=== PATIENT | female | born 1985 | race Caucasian/White ===

== ENCOUNTER → 2018-08-22 12:56 | Outpatient (CLI) | payer OTHER, SELFPAY ==
--- NOTE | 2018-08-22 12:57 | DI.US.S_ITS ---
PROCEDURE: US OB >= 14 WEEKS FETUS INDICATIONS: ANATOMY SURVEY OUTSIDE/PRIOR DATING DATA: Last menstrual period (LMP): 04/01/18. LMP-based estimated date of delivery (LUCIAN): 01/06/19. First dating scan (date and location): 08/21/18. Estimated date of delivery (LUCIAN) from first dating scan: 01/07/19. TECHNIQUE: Real-time scanning was performed of the fetus, with image documentation and biometric measurements. Endovaginal scanning: No COMPARISON: None. FINDINGS: General: A single living intrauterine gestation is present. Presentation: Variable. Placenta: Placental position is anterior, without previa. Amniotic fluid index: 14.3 cm, normal range is 5-24 cm. heart rate: 158 beats per minute. Maternal cervical canal: 5.1 cm long. Normal lower limit is 2.5 cm. biometrics: Biparietal diameter: 19 weeks 6 days Head circumference: 19 weeks 6 days Abdominal circumference: 20 weeks 6 days Femur length: 20 weeks 3 days Estimated gestational age from initial scan: not applicable. Composite gestational age from present scan: 20 weeks 2 days Estimated weight and percentile: 364 g; 54 percentile Measurement variability for biometric dating: +/- 7 days from 14 weeks to 15 weeks 6 days gestation, +/- 10 days from 16 weeks to 21 weeks 6 days gestation, +/- 2 weeks from 22 weeks to 27 weeks 6 days gestation, +/- 3 weeks for 28 weeks gestation or later. weight reference: 4500 g or EFW >90/95% is considered macrosomia or large for gestational age. EFW <10% is small for gestational age. EFW 5% or less is considered intra-uterine growth restriction. Anatomic survey: Neuro: Ventricles are non-dilated at less than 10 mm. Cisterna magna is normal at 3-11 mm. Cerebellum is normal in size and morphology. Nuchal skin fold: Normal at less than 6 mm between 14-21 weeks gestational age. Face: Nose and lips, facial profile are normal. Spine: No evidence for spina bifida. Heart: 4-chambered heart is present, with normal ventricular outflow tracts. Diaphragm: Diaphragm is intact. Stomach: Left-sided stomach is present. Kidneys: No hydronephrosis. Normal is less than 5 mm in 2nd trimester, less than 7 mm in 3rd trimester. Cord: 3-vessel cord has orthotopic insertion. Bladder: Normal in size. Extremities: All 4 extremities identified. IMPRESSION: 1. Single living IUP with composite gestational age of 20 weeks 2 days corresponding to LUCIAN OF 01/07/19. 2. Normal anatomic survey. Dictated by: Adam Dorsey [facility] Interpreted: Lani Lara MD on 08/22/2018 at 15:41 Approved by: Lani Lara M.D. on 08/22/2018 at 16:40
== END ==
PROVIDERS: PCP Family Medicine; Visit Provider Specialist
DX: Z34.82 Encounter for supervision of other normal pregnancy, second trimester (principal); Z36.89 Encounter for other specified antenatal screening; Z3A.20 20 weeks gestation of pregnancy
CPT/HCPCS: 76811; 76817

== ENCOUNTER → 2018-10-03 11:27 | Outpatient (CLI) | payer OTHER, SELFPAY ==
[2018-10-03 13:04] LABS: Add Manual Diff / Slide Review NO; Basophils Absolute Auto 0 /uL (0-100); Basophils Percent Auto 0.4 % (0-2); Eosinophils Absolute Auto 200 /uL (0-450); Eosinophils Percent Auto 2.4 % (2-4); Hemoglobin 11.5 g/dL (12.0-16.0); Lymphocytes Absolute Auto 1300 /uL (1100-4500); Mean Corpuscular HGB Conc 33.9 % (30-36); Mean Corpuscular Volume 94.5 fL (80-100); Monocytes Absolute Auto 400 /uL (0-900); Monocytes Percent Auto 5.1 % (3-14); Neutrophils Absolute Auto 5300 /uL (1500-7000); Neutrophils Percent Auto 74.1 % (50-75); Platelet Count 198 X10^3/uL (150-400); Red Cell Distribution Width 13.5 % (11.6-14.8); White Blood Cell Count 7.1 X10^3/uL (4.5-11.0)
[2018-10-03 13:20] LABS: GTT (PREG) 1 Hour PP 50gm Dose 127 mg/dL (76-139)
[2018-10-03 14:37] LABS: Rubella Antibody IgG 47.2 IU/mL (>15)
[2018-10-03 14:45] LABS: Hepatitis B Surface Antigen NEGATIVE s/c (NEGATIVE)
[2018-10-03 14:58] LABS: HIV 1 & 2 Ab/Ag 4th Gen Combo NEGATIVE (NEGATIVE); Hep C Virus Ab w/Reflex Quant NEGATIVE s/c (NEGATIVE)
[2018-10-05 13:54] LABS: HSV 2 IGG AB < 0.90 index (< 0.90)
[2018-10-06 12:17] LABS: RPR Screen Nonreactive (Nonreactive)
[2018-10-23 13:39] LABS: Urine N gonorrhoeae NOT DETECTED
[2018-10-23 13:40] LABS: Urine Chlamydia NOT DETECTED
== END ==
PROVIDERS: PCP Family Medicine; Visit Provider Specialist
DX: Z34.82 Encounter for supervision of other normal pregnancy, second trimester (principal); Z3A.26 26 weeks gestation of pregnancy; Z67.91 Unspecified blood type, Rh negative
CPT/HCPCS: 36415; 80055; 82950; 86695; 86696; 86787; 86803; 86850; 86900; 86901; 87389; 87491; 87591

== ENCOUNTER → 2018-12-18 08:57 | Outpatient (CLI) | payer OTHER, SELFPAY ==
[2018-12-19 15:09] LABS: Strep Grp B PCR POS for Grp B Strep
== END ==
PROVIDERS: PCP Family Medicine; Visit Provider Specialist
DX: Z34.83 Encounter for supervision of other normal pregnancy, third trimester (principal)
CPT/HCPCS: 87653

== ENCOUNTER 2019-01-02 11:20 | Inpatient (IN) | payer OTHER, SELFPAY ==
--- NOTE | 2019-01-02 11:43 | PM.PREOP ---
Pre-operative Note Interval Note History & Physical reviewed/Exam performed by Physician: Yes Changes to H&P: No
--- NOTE | 2019-01-02 11:47 | PM.OBHP.1 ---
OB HPI Date/Time Date of admission: 01/02/19 Date Patient Seen: 01/02/19 Time Patient Seen: 11:47 History of Present Condition Chief complaint: [id number] : 4 Para: 2 Estimated Date of Delivery: 01/09/19 Estimated Gestational Age (weeks): 39 Narrative: Erendira Silva is a 33 year old female admitted for repeat Indications Operative indications ( section): previous uterine surgery History of Present care: good care, initiated at week # (9), number of visits (11) and pounds weight gain (42) Dating criteria: LMP confirmed by 1st trimester US Ultrasounds: normal mid trimester US Obstetrical complications: none Medical complications: none Preadmission Labs Blood type: 0 (-) negative -: Antibody screen: negative, GBS status: positive, HBsAG: negative, HIV: negative, HSV 1: positive and HSV 2: negative -: Chlamydia screen: not detected and Gonorrhea screen: not detected -: Rubella: immune and Varicella: immune HCAB: negative 1 hr GTT: 127 Prior (ies) History: 10/12/2013 male weighing 8 lb 15 oz section 02/25/2016 male repeat C-sections weighing 9 lb Evaluation Evaluation Baseline heart rate: 130 Variability: Moderate (11-25) monitor accelerations: Present monitor decelerations: Absent Contraction Frequency (minutes): 0 PFSH Social History marital status: number of children: 2 occupational status: employed Smoking Status: Never smoker alcohol intake: former substance use type: does not use Meds Home Medications and Allergies Allergies Allergy/AdvReac Type Severity Reaction Status Date / Time No Known Drug Allergies Allergy Verified 01/02/19 11:34 Review of Systems Review of Systems Narrative: No signs or symptoms of preeclampsia. No leakage of fluid. Good movement. No contractions. ROS Unobtainable: All systems reviewed & are unremarkable except as noted in HPI and below Exam Narrative Exam Narrative: HEENT exam within normal limits. Lungs are clear to auscultation percussion. Heart is regular rate and rhythm no S3-S4 or murmurs. Abdomen is gravid with vertex. Extremities with trace edema and nontender. Assessment and Plan Assessment and Plan Assessment and Plan narrative: 39 week gestation with 2 prior sections for repeat low-transverse section
[2019-01-02] MEDS: LACTATED RINGERS 1,000 ML 100 ML IV ×2 (11:50→19:41)
[2019-01-02 12:23] LABS: Add Manual Diff / Slide Review NO; Basophils Absolute Auto 0 /uL (0-100); Basophils Percent Auto 0.3 % (0-2); Eosinophils Absolute Auto 200 /uL (0-450); Eosinophils Percent Auto 1.9 % (2-4); Hematocrit 36.2 % (36-46); Hemoglobin 12.6 g/dL (12.0-16.0); Lymphocytes Absolute Auto 1600 /uL (1100-4500); Lymphocytes Percent Auto 15.6 % (25-40); Mean Corpuscular HGB Conc 34.7 % (30-36); Mean Corpuscular Hemoglobin 32.2 PG (26-34); Mean Corpuscular Volume 92.9 fL (80-100); Monocytes Absolute Auto 600 /uL (0-900); Monocytes Percent Auto 5.7 % (3-14); Neutrophils Absolute Auto 8000 /uL (1500-7000); Neutrophils Percent Auto 76.5 % (50-75); Platelet Count 197 X10^3/uL (150-400); Red Cell Distribution Width 14.3 % (11.6-14.8); White Blood Cell Count 10.4 X10^3/uL (4.5-11.0)
[2019-01-02] MEDS: CEFAZOLIN 2 GM/100 ML FROZ.PIGGY IV (13:10)
--- NOTE | 2019-01-02 13:36 | SUR.OPER ---
Supine on Padded OR bed, head on pillow, safety belt at thigh, arms secured on padded arm boards at <90 degrees abduction. Bump under right buttock. Legs uncrossed with pillow under knees, gel pad to heels, tape over blanket to lower legs.
[2019-01-02] MEDS: LACTATED RINGERS 1,000 ML 42 ML IV (13:49)
--- NOTE | 2019-01-02 13:50 | SUR.OPER ---
FHR 140 TOB 13:37 alive boy. Cord blood x 2 and placenta given to OB nurse.
[2019-01-02 14:22] VITALS: BP 98/58; PULSE 69; RESP 10; TEMP 36.3; O2SAT 100
[2019-01-02 14:25] VITALS: BP 105/49; PULSE 60; RESP 14; O2SAT 100
[2019-01-02 14:30] VITALS: BP 112/58; PULSE 68; RESP 12; O2SAT 100
--- NOTE | 2019-01-02 14:32 | PM.OP.1 ---
Operative Date/Time/Diagnoses Date of procedure: 01/02/19 Time of procedure: 14:32 Pre-op diagnosis: 39 week gestation with 2 prior section Post-op diagnosis: same Procedure & Clinicians Procedure: Repeat low-transverse section Same procedure as scheduled: Yes Indications: 39 weeks with prior section Surgeon: Alissa Sanon [facility] President: Berenice Louise Click Yes if Unassisted: No Anesthesia Type: Spinal Operative Notes Findings: Normal tubes ovaries and uterus with adhesion of the anterior abdominal wall to the anterior uterus that was lysed. Viable male infant weighing 8 lb 5 oz with Apgars of 8 9 Closure Type: primary Specimen(s): none sent Applied: catheter (Edmond) Estimated Blood Loss (mL): 400 Blood products transfused: none Procedure in detail: The patient was brought to the operating room where she underwent a spinal for anesthesia. She was placed in a supine position with a left lateral tilt. A Edmond catheter was placed. Pulsatile stockings were placed and functional throughout the case. 2 g of Ancef were given IV prior to the incision. Warming was in place. The patient was prepped and draped in usual sterile fashion. A low transverse incision was made with a scalpel and the incision was carried down to the fascial layer which was incised transversely with scissors. The midline attachments are superiorly and inferiorly. Some bleeding was controlled Bovie. The rectus muscles were in the midline and the peritoneal incision was made with no damage to internal structures. The peritoneum was incised and superiorly and inferiorly. An adhesion of the anterior abdominal wall to the anterior uterus was lysed with the Bovie. Bladder blade was placed and a bladder flap was developed and the bladder held away from the lower uterine segment. An incision was made in the uterus with the scalpel and the incision was extended with stretching. The head was elevated out of the abdomen with the assistance of the vacuum and with fundal pressure the baby was delivered. The was bulb suctioned for clear fluid and handed off to the warmer. Cord blood was collected. The placenta delivered spontaneously with traction. The uterus was cleaned with clean laps. The uterine incision was closed in 2 layers of 0 chromic suture the first a running locking layer the second an imbricating layer. The bladder peritoneum was repaired with 2-0 Polysorb suture. The gutters were cleaned of any remaining fluids and ovaries and tubes were observed to be normal. Adequate hemostasis was noted. The perineum was closed with 2-0 Polysorb suture. The fascia layer was closed with 0 Polysorb suture with 2 stitches. The incision was irrigated and adequate hemostasis noted. The incision was closed with interrupted 3-0 Polysorb sutures and then a subcuticular stitch of 4-0 Polysorb suture. Steri-Strips were placed. The uterus was massaged to remove any clots. The patient went to recovery room in good condition. Counts of instruments and sponges were correct. Complications: none Post-operative Condition: stable Disposition: other ( Center) Plan for aftercare: Routine post section
[2019-01-02 14:36] VITALS: BP 100/50; PULSE 60; RESP 14; O2SAT 100
--- NOTE | 2019-01-02 14:40 | SUR.PHASEI ---
Report called to Haydee
[2019-01-02 14:44] VITALS: BP 97/55; PULSE 57; RESP 9; O2SAT 100
--- NOTE | 2019-01-02 15:05 | SUR.PHASEI ---
Pt transferred to the center. Report to Haydee. VS stable. Scant shadow drainage to abd dressing, unchanged. Small to mod amt of vaginal bleeding with fundal massage by Haydee. LR with Pitocin infusing to LT hand. Edmond patent.
[2019-01-02] MEDS: KETOROLAC 30 MG/ML VIAL IV (19:42)
[2019-01-03] MEDS: KETOROLAC 30 MG/ML VIAL IV ×2 (01:35→08:03)
[2019-01-03 05:42] VITALS: BP 116/68; PULSE 70; RESP 16; TEMP 37.1
[2019-01-03 06:16] LABS: Add Manual Diff / Slide Review NO; Basophils Absolute Auto 0 /uL (0-100); Basophils Percent Auto 0.3 % (0-2); Eosinophils Absolute Auto 100 /uL (0-450); Eosinophils Percent Auto 1.3 % (2-4); Hematocrit 28.4 % (36-46); Hemoglobin 10.1 g/dL (12.0-16.0); Lymphocytes Absolute Auto 1300 /uL (1100-4500); Lymphocytes Percent Auto 15.3 % (25-40); Mean Corpuscular HGB Conc 35.4 % (30-36); Mean Corpuscular Hemoglobin 32.9 PG (26-34); Mean Corpuscular Volume 92.9 fL (80-100); Monocytes Absolute Auto 600 /uL (0-900); Monocytes Percent Auto 6.9 % (3-14); Neutrophils Absolute Auto 6400 /uL (1500-7000); Neutrophils Percent Auto 76.2 % (50-75); Platelet Count 164 X10^3/uL (150-400); Red Blood Cell Count 3.06 X10^6/uL (4.0-5.2); White Blood Cell Count 8.4 X10^3/uL (4.5-11.0)
[2019-01-03] MEDS: DOCUSATE 250 MG CAPSULE PO (08:08)
[2019-01-03] MEDS: FERROUS GLUCONATE 324 MG TABLET PO (08:10)
[2019-01-03] MEDS: IBUPROFEN 600 MG TABLET PO ×2 (14:49→20:57)
[2019-01-04] MEDS: ACETAMINOPHEN 325 MG TABLET 650 MG PO (00:12)
[2019-01-04] MEDS: IBUPROFEN 600 MG TABLET PO ×2 (03:10→09:15)
[2019-01-04] MEDS: OXYCODONE/ACETAMINOPHEN 5/325 TABLET 1 TAB PO (04:14)
[2019-01-04] MEDS: DOCUSATE 250 MG CAPSULE PO (09:15)
[2019-01-04] MEDS: OXYCODONE/ACETAMINOPHEN 5/325 TABLET 2 TAB PO (09:15)
--- NOTE | 2019-01-04 09:25 | P.DS_ITS ---
Discharge Providers Provider Date of admission: 01/02/19 11:20 Discharge Date: 01/04/19 Primary care physician: Berenice Louise DO Consults: 01/02/19 15:41 Consult to Marine Steward Routine Comment: Discharge provider: Alissa Sanon MD Summary Hospital Course Date Patient Seen: 01/04/19 Time Patient Seen: 09:29 Procedures: Repeat low-transverse section Hospital Course: Patient will was admitted for repeat low-transverse section at 39 weeks. Both she and the baby are doing well. She is breast-feeding without difficulty. No signs or symptoms of preeclampsia. No depression. She is urinating and ambulating well. Peripartum Data Infant Delivery Method: Section Procedures: Repeat low-transverse section complications: none [place] 1: Gender: Male Disposition of : home Discharge Diagnosis (1) Delivery by section: Status: Acute (2) Acute blood loss anemia: Status: Acute Status at Discharge Cognitive/behavioral status at discharge: oriented Functional status at discharge: independent ambulation Overall status at discharge: patient is progressing back to baseline Time Spent with Patient Time attestation: Total time spent providing and/or coordinating discharge servi meghan: Time spent: Less than 30 minutes Objective Labs Result Diagrams: 01/03/19 06:00 Exam Vital Signs (past 8 hours): Blood pressure 117/65, pulse of 68, temperature 37.1 Oxygen Delivery Method Room Air Narrative Exam Narrative: Abdomen is soft, nontender. Uterus is firm, at U, nontender. Dressing is clean, dry, intact. Mild lochia. Extremities with trace edema and nontender. Patient received Tdap in the 3rd trimester. She is rubella immune. Baby and mom are Rh negative so no RhoGAM is indicated. Discharge Plan Discharge Plan Patient Disposition: Home Discharge Med Rec/Prescriptions Prescriptions: New oxycodone-acetaminophen 5-325 mg Tablet 2 tab PO Q4HR PRN (Reason: Pain, Severe (7-10)) Qty: 30 RF: 0 ibuprofen 600 mg Tablet 600 mg PO Q6HR PRN (Reason: As Needed For Fever/Mild Pain) Qty: 30 RF: 0 docusate sodium 250 mg Capsule 250 mg PO DAILY Qty: 20 RF: 0 No Action No Known Home Medications RF: 0 Follow up/Referrals: Alissa Sanon MD [Physician] - (Follow up with Dr. Sanon on February 14 @ 3:30pm.) Berenice Louise DO [Primary Care Provider] - Provider Discharge Instructions Diet: Regular Activity: Nothing in vagina for 4 weeks, do not lift over 20 lb for 6 weeks Skin/Wound/Dressing Care Report to your healthcare provider any signs of infection, such as:: chills, fever, increased pain and unusual redness Dressing: Leave dressing on until your postop appointment Discharge Data Primary Care Provider: Berenice Louise
== END 2019-01-04 12:30 | disposition home or self-care (01) | DRG 788 ==
PROVIDERS: Admitting Provider Specialist; PCP Family Medicine; Visit Provider Specialist
PROC: 10D00Z1 Extraction of Products of Conception, Low, Open Approach (ICD-10-PCS; CPT 59514; principal; 2019-01-02 13:30)
DX: O34.211 Maternal care for low transverse scar from previous cesarean delivery (principal); Z3A.39 39 weeks gestation of pregnancy; Z37.0 Single live birth; O99.824 Streptococcus B carrier state complicating childbirth
CPT/HCPCS: 36415; 59050; 59510; 59514; 85025; 86850; 86900; 86901; J0690; J1100; J1885; J2274; J2405; J2590

== ENCOUNTER → 2019-10-09 14:29 | Outpatient (CLI) | payer OTHER, SELFPAY ==
--- NOTE | 2019-10-09 14:30 | DI.US.S_ITS ---
PROCEDURE: US OB <= 14 WEEKS FETUS INDICATIONS: DATING OUTSIDE/PRIOR DATING DATA: Last menstrual period (LMP): 08/13/19. LMP-based estimated date of delivery (LUCIAN): 05/19/20 . First dating scan (date and location): This study . Estimated date of delivery (LUCIAN) from first dating scan: 05/17/20 . TECHNIQUE: Real-time scanning was performed of the fetus and maternal pelvic organs, with image documentation. Endovaginal scanning was also performed to better visualize the fetus and maternal ovaries. COMPARISON: None. FINDINGS: Embryo: [place]-rump length 1.4 cm, which correlates with a gestational age of 7 weeks 5 days. Measurement variability in dating: +/- 4 weeks by LMP, +/- 7 days by mean sac diameter (use before 6 weeks gestation if crown-rump length not able to be measured), +/- 5 days by crown-rump length (up to 8 weeks 6 days gestation), +/- 7 days by crown-rump length (up to 13 weeks 6 days gestation). Maternal organs: Ovaries appear normal considering gestational status . Limited images through the kidneys demonstrate no hydronephrosis. IMPRESSION: Single living intrauterine early 1st trimester gestation with estimated current gestational age of 8 weeks 3 days and delivered a projected to be centered on 05/17/20. Dictated by: Alvarez Lou M.D. on 10/10/2019 at 12:21 Approved by: Alvarez Lou M.D. on 10/10/2019 at 12:23
== END ==
PROVIDERS: PCP Family Medicine; Referring Provider Family Medicine; Visit Provider Family Medicine
DX: Z34.91 Encounter for supervision of normal pregnancy, unspecified, first trimester (principal); Z3A.08 8 weeks gestation of pregnancy
CPT/HCPCS: 76801

== ENCOUNTER → 2019-10-24 12:05 | Outpatient (CLI) | payer OTHER, SELFPAY ==
[2019-10-24 13:07] LABS: Add Manual Diff / Slide Review NO; Basophils Absolute Auto 0 /uL (0-100); Basophils Percent Auto 0.2 % (0-2); Eosinophils Absolute Auto 200 /uL (0-450); Eosinophils Percent Auto 3.1 % (2-4); Hematocrit 37.4 % (36-46); Hemoglobin 12.8 g/dL (12.0-16.0); Lymphocytes Absolute Auto 1800 /uL (1100-4500); Lymphocytes Percent Auto 22.9 % (25-40); Mean Corpuscular HGB Conc 34.3 % (30-36); Mean Corpuscular Hemoglobin 30.9 PG (26-34); Monocytes Absolute Auto 500 /uL (0-900); Monocytes Percent Auto 5.6 % (3-14); Neutrophils Absolute Auto 5500 /uL (1500-7000); Neutrophils Percent Auto 68.2 % (50-75); Platelet Count 213 X10^3/uL (150-400); Red Blood Cell Count 4.15 X10^6/uL (4.0-5.2); Red Cell Distribution Width 12.9 % (11.6-14.8); White Blood Cell Count 8.1 X10^3/uL (4.5-11.0)
[2019-10-24 13:09] LABS: Appearance Urine UA SL CLOUDY; Bilirubin Urine UA NEGATIVE (NEGATIVE); Color Urine UA YELLOW; Glucose Urine UA NEGATIVE (Negative); Ketones Urine UA NEGATIVE (NEGATIVE); Leukocyte Esterase Urine UA NEGATIVE (NEGATIVE); Nitrite Urine UA NEGATIVE (Negative); Occult Blood Urine UA NEGATIVE (Negative); Protein Urine UA NEGATIVE (Negative); Urobilinogen Urine UA 0.2 E.U./dL (0.2)
[2019-10-25 04:40] LABS: RPR Screen Non Reactive (Non Reactive)
[2019-10-25 06:36] LABS: Varicella IgG Antibody 1672 index (Immune >165)
[2019-10-27 15:35] LABS: Hepatitis B Surface Antigen NEGATIVE s/c (NEGATIVE)
[2019-10-27 15:47] LABS: HIV 1 & 2 Ab/Ag 4th Gen Combo NEGATIVE (NEGATIVE); Hep C Virus Ab w/Reflex Quant NEGATIVE s/c (NEGATIVE)
== END ==
PROVIDERS: PCP Family Medicine; Referring Provider Family Medicine; Visit Provider Family Medicine
DX: Z34.91 Encounter for supervision of normal pregnancy, unspecified, first trimester (principal)
CPT/HCPCS: 36415; 80055; 81003; 86787; 86803; 86850; 86900; 86901; 87086; 87389

== ENCOUNTER → 2019-12-30 09:00 | Outpatient (CLI) | payer OTHER, SELFPAY ==
--- NOTE | 2019-12-30 09:01 | DI.US.S_ITS ---
PROCEDURE: OB >= 14 WEEKS FETUS INDICATIONS: ANATOMY OUTSIDE/PRIOR DATING DATA: Last menstrual period (LMP): 08/13/2019 LMP-based estimated date of delivery (LUCIAN): 05/19/2020 First dating scan (date and location): 10/09/2019 Estimated date of delivery (LUCIAN) from first dating scan: 05/17/2020 TECHNIQUE: Real-time scanning was performed of the fetus, with image documentation and biometric measurements. Endovaginal scanning: Not performed COMPARISON: [facility], OB <= 14 WEEKS FETUS, 10/09/2019, 14:47. [facility], OB >= 14 WEEKS FETUS, 10/23/2018, 9:53. FINDINGS: General: A single living intrauterine gestation is present. Presentation: Vertex. Placenta: Placental position is anterior, without previa. Amniotic fluid index: 13.5 cm, normal range is 5-24 cm. heart rate: 155 beats per minute. Maternal cervical canal: 4.4 cm long. Normal lower limit is 2.5 cm. biometrics: Biparietal diameter: 4.3 cm, 18 weeks 6 days Head circumference: 17.2 cm, 19 weeks 6 days Abdominal circumference: 15.4 cm, 20 weeks 4 days Femur length: 3.9 cm, 22 weeks 2 days. 96 percentile. Estimated gestational age from initial scan: 20 weeks 3 days Composite gestational age from present scan: 20 weeks 1 day Estimated weight and percentile: 402 g, 92 percentile Measurement variability for biometric dating: +/- 7 days from 14 weeks to 15 weeks 6 days gestation, +/- 10 days from 16 weeks to 21 weeks 6 days gestation, +/- 2 weeks from 22 weeks to 27 weeks 6 days gestation, +/- 3 weeks for 28 weeks gestation or later. weight reference: 4500 g or EFW >90/95% is considered macrosomia or large for gestational age. EFW <10% is small for gestational age. EFW 5% or less is considered intra-uterine growth restriction. Anatomic survey: Neuro: Ventricles are non-dilated at less than 10 mm. Cisterna magna is normal at 3-11 mm. Cerebellum is normal in size and morphology. Nuchal skin fold: Normal at less than 6 mm between 14-21 weeks gestational age. Face: Nose and lips, facial profile are normal. Spine: No evidence for spina bifida. Heart: 4-chambered heart is present, with normal ventricular outflow tracts. Diaphragm: Diaphragm is intact. Stomach: Left-sided stomach is present. Kidneys: No hydronephrosis. Normal is less than 5 mm in 2nd trimester, less than 7 mm in 3rd trimester. Cord: 3-vessel cord has orthotopic insertion. Bladder: Normal in size. Extremities: All 4 extremities identified. No maternal hydronephrosis. IMPRESSION: 1. [place] living intrauterine at 20 weeks 1 day based on today's ultrasound. This is concordant with the prior ultrasound. There is expected interval growth. Fetus is in the 92 percentile for weight. 2. Normal placenta and amniotic fluid. 3. Normal and complete anatomic survey. Dictated by: Carroll Edward M.D. on 12/30/2019 at 11:59 Approved by: Carroll Edward M.D. on 12/30/2019 at 12:04
== END ==
PROVIDERS: PCP Family Medicine; Referring Provider Family Medicine; Visit Provider Family Medicine
DX: Z36.89 Encounter for other specified antenatal screening (principal); Z3A.20 20 weeks gestation of pregnancy
CPT/HCPCS: 76811

== ENCOUNTER → 2020-03-05 09:06 | Outpatient (CLI) | payer OTHER, SELFPAY ==
[2020-03-05 11:15] LABS: Hematocrit 31.9 % (36-46); Hemoglobin 10.8 g/dL (12.0-16.0)
[2020-03-05 11:32] LABS: GTT (PREG) 1 Hour PP 50gm Dose 135 mg/dL (76-139)
== END ==
PROVIDERS: PCP Family Medicine; Referring Provider Family Medicine; Visit Provider Family Medicine
DX: O26.899 Other specified pregnancy related conditions, unspecified trimester (principal); Z3A.28 28 weeks gestation of pregnancy; Z67.91 Unspecified blood type, Rh negative
CPT/HCPCS: 36415; 82950; 85014; 85018; 86850

== ENCOUNTER → 2020-04-20 14:21 | Outpatient (CLI) | payer OTHER, SELFPAY ==
[2020-04-21 11:13] LABS: Strep Grp B PCR POS for Grp B Strep
== END ==
PROVIDERS: PCP Family Medicine; Visit Provider Family Medicine
DX: Z34.90 Encounter for supervision of normal pregnancy, unspecified, unspecified trimester (principal); Z3A.36 36 weeks gestation of pregnancy
CPT/HCPCS: 87653

== ENCOUNTER 2020-05-14 06:17 | Inpatient (IN) | payer OTHER, SELFPAY ==
--- NOTE | 2020-05-14 | PATH_ITS ---
[facility] Accession Number: [id number] . 01 Material submitted: . fallopian tube - BILATERAL FALLOPIAN TUBES . 02 Diagnosis: Bilateral Fallopian Tubes, Bilateral Tubal Ligation: Complete cross-sections of segments of fallopian tube x2. MRV 05/19/2020 1138 Local . 02 Electronically signed: . Rufina Ruiz MD, Pathologist NPI- [id number] . 01 Gross description: . The specimen is received in formalin, labeled bilateral fallopian tubes and consists of two segments of fallopian tubes measuring 1.0 cm in length x 0.8 cm in diameter each. The serosa is pink-purple and smooth. Sectioning reveals a tucker mucosa and a stellate lumen measuring 0.2 cm in diameter. The segments are trisected and entirely submitted in cassettes A1-A2. ([id number]) /[facility] 05/18/2020 1720 Local . 02 Pathologist provided ICD-10: Z3A.39, Z98.891, Z30.2 . 02 CPT . 446901 Performed at: 01 [facility] [address], [place], [place] [id number] MD Romeo Patel MD Phone: [phone] Performed at: 02 [facility] [address] [place], [place] [id number] MD Mallory Davis MD Phone: [phone]
--- NOTE | 2020-05-14 06:41 | PM.OBHP.1 ---
OB HPI Date/Time Date of admission: 05/14/20 Date Patient Seen: 05/14/20 Time Patient Seen: 07:00 History of Present Condition Chief complaint: IP : 5 Para: 3 Estimated Date of Delivery: 05/19/20 Estimated Gestational Age (weeks): 39w2d Narrative: Erendira Silva is a 34 year old at 39 weeks and 2 days gestation here for repeat . History of 3 prior C-sections without complications. This has also been uncomplicated with the exception of morbid obesity. She is Rh negative and received RhoGAM at 29 weeks. Indications Operative indications ( section): previous uterine surgery History of Present care: good care, initiated at week # (10), number of visits (12) and pounds weight gain (42) Dating criteria: LMP confirmed by 1st trimester US Ultrasounds: normal mid trimester US Obstetrical complications: none Medical complications: none Preadmission Labs Blood type: 0 (-) negative -: Antibody screen: negative, GBS status: positive, HBsAG: negative, HIV: negative and RPR/VDLR: negative -: Chlamydia screen: not detected and Gonorrhea screen: not detected -: Rubella: immune and Varicella: immune HCT: 10.8 HCAB: negative PAP: Normal Urine: Lactobacillus 1 hr GTT: 135 Evaluation Evaluation Baseline heart rate: 150 Variability: Moderate (11-25) monitor accelerations: Present monitor decelerations: Absent Uterine Contraction Intensity: Mild Category of Tracing: Reactive [facility] Medical History Abnormal Pap smear of cervix (~2007) Depression H/O being hospitalized HPV (human papilloma virus) infection HSV-1 (herpes simplex virus 1) infection Vertigo (~2015) Surgical History H/O section (~01/02/19) History of appendectomy [place] teeth extracted Family History Mother Brain tumor Depression Heart disease Diabetes mellitus Father No known health problems Adopted child Grandfather Family estrangement Grandmother COPD (chronic obstructive pulmonary disease) Heavy smoker Grandfather Alcoholic No known health problems Family estrangement Grandmother Family estrangement No known health problems Cancer Social History marital status: number of children: 3 household members: spouse and children pets and animals: Yes (1 cat (outside) and X 1 dog) occupational status: employed current occupational exposures/hazards: Yes Previous occupational history: Consumer Relations Specialist special torito needs: No Smoking Status: Never smoker second hand exposure: No alcohol intake: former substance use type: does not use Meds Home Medications and Allergies Home Medications Medication Instructions Recorded Confirmed Type prenat.vits,sadia,sgh-[id number] 1 tab PO DAILY 10/20/19 10/24/19 History Allergies Allergy/AdvReac Type Severity Reaction Status Date / Time No Known Drug Allergies Allergy Verified 10/21/19 11:07 Review of Systems Review of Systems ROS: Yes All systems reviewed with the patient and are negative except as otherwise documented Exam Vital Signs (past 8 hours): Temperature 36.4? blood pressure 137/68 heart rate 83 Const General: healthy appearing and comfortable HENMT Head: normal to inspection Eyes General: appearance normal, both eyes and all related structures Neck Neck: normal visual inspection Resp Effort & Inspection: normal respiratory effort Auscultation: clear to auscultation bilaterally Cardio Rate: regular rate Rhythm: regular rhythm Heart Sounds: no murmurs GI Inspection: obesity and other (Well-healed low transverse abdominal incision) Other: Gravid External Female Exam: normal external appearance Back/Spine/Pelvis Back: normal to inspection Skin General: no rashes or lesions noted Extrem General: normal to inspection and no pedal edema Assessment and Plan Assessment and Plan Assessment and Plan narrative: Patient is a 34-year-old at 39 weeks and 2 days gestation here for repeat with bilateral tubal ligation. Previously signed consents for as well as tubal ligation were reviewed with the patient and her . Discussed risk of infection, bleeding or injury to surrounding organs. In the event of severe bleeding she would receive a blood transfusion. Both she and her are aware that tubal ligation is considered permanent sterilization. Will give 2 g Ancef prior to surgery.
[2020-05-14] MEDS: LACTATED RINGERS 1,000 ML 100 ML IV ×3 (07:20→20:02)
[2020-05-14] MEDS: LACTATED RINGERS 1,000 ML 42 ML IV ×3 (07:20→08:55)
[2020-05-14 07:43] LABS: Add Manual Diff / Slide Review NO; Basophils Absolute Auto 0 /uL (0-100); Basophils Percent Auto 0.5 % (0-2); Eosinophils Absolute Auto 100 /uL (0-450); Eosinophils Percent Auto 1.4 % (2-4); Hemoglobin 11.9 g/dL (12.0-16.0); Lymphocytes Absolute Auto 1600 /uL (1100-4500); Lymphocytes Percent Auto 19.1 % (25-40); Mean Corpuscular HGB Conc 33.9 % (30-36); Mean Corpuscular Hemoglobin 31.4 PG (26-34); Mean Corpuscular Volume 92.6 fL (80-100); Monocytes Absolute Auto 500 /uL (0-900); Monocytes Percent Auto 6.6 % (3-14); Neutrophils Absolute Auto 5900 /uL (1500-7000); Neutrophils Percent Auto 72.4 % (50-75); Platelet Count 198 X10^3/uL (150-400); Red Blood Cell Count 3.78 X10^6/uL (4.0-5.2); Red Cell Distribution Width 15.7 % (11.6-14.8); White Blood Cell Count 8.2 X10^3/uL (4.5-11.0)
[2020-05-14 07:55] LABS: COVID19 -Nasal RAPID Negative (Negative)
[2020-05-14] MEDS: ACETAMINOPHEN 325 MG TABLET 975 MG PO (07:55)
[2020-05-14] MEDS: CITRIC ACID/SODIUM CITRATE 15 ML SOLUTION 30 ML PO (07:56)
--- NOTE | 2020-05-14 08:13 | PM.PREOP ---
Pre-operative Note COVID-19 COVID-19 status: Negative Result date/Date tested (Pos, Neg/Pending): 05/14/20 Interval Note History & Physical reviewed/Exam performed by Physician: Yes Changes to H&P: No
[2020-05-14] MEDS: CEFAZOLIN 2 GM/100 ML FROZ.PIGGY IV (08:28)
--- NOTE | 2020-05-14 08:56 | SUR.OPER ---
Viable female delivered at 08:51. Cord blood vials x2 and placenta sent with L&D RN.
[2020-05-14 09:05] VITALS: BP 137/68
[2020-05-14 09:52] VITALS: BP 126/74; PULSE 50; RESP 15; TEMP 36.3; O2SAT 98
[2020-05-14 09:57] VITALS: BP 119/55; PULSE 51; RESP 16; O2SAT 98
--- NOTE | 2020-05-14 10:00 | PM.OP.1 ---
Operative Date/Time/Diagnoses Date of procedure: 05/14/20 Time of procedure: 08:30 Pre-op diagnosis: Prior x3 39 weeks of Desires permanent sterilization Post-op diagnosis: same Procedure & Clinicians Procedure: Repeat low transverse section Bilateral tubal ligation Same procedure as scheduled: Yes Indications: Prior x3 39 weeks of Desires permanent sterilization Surgeon: Berenice Louise T[employer] And Tube Repairer: Giuliana Skelton Anesthesia Type: Spinal Operative Notes Findings: Live female Normal uterus, tubes and ovaries Closure Type: primary Specimen(s): none sent (Fallopian tube segments) Applied: catheter Estimated Blood Loss (mL): 350 Blood products transfused: none Procedure in detail: The patient was taken to the operating room where she was placed in the seated position. Spinal anesthesia was administered. She was then placed in the dorsal supine position with a leftward tilt. SCDs applied. She was prepped and draped in the usual sterile fashion. A timeout was performed. After spinal analgesia was found to be adequate, a Pfannenstiel skin incision was made 2 fingerbreadths above the pubic symphysis over the previous scar and carried through to the underlying layer fascia. The fascia was nicked in the midline and the incision extended bilaterally with Dumont scissors, Dr. Louise doing the left side and Dr. Skelton doing the right side. The superior aspect of the fascial incision was grasped with a Rashel clamps, elevated, and the underlying rectus muscles dissected off sharply and bluntly. Attention was then turned to the inferior aspect of this incision which in a similar fashion was grasped with a Rashel clamps, elevated, and the underlying rectus muscles dissected off sharply and bluntly. The rectus muscles were in the midline. The peritoneum was identified with moderate adhesions to the abdominal wall inferiorly. The peritoneum was dissected sharply and bluntly through the adhesions by both Dr. Louise and Dr. Skelton. This incision was extended superiorly and inferiorly with good visualization of the bladder. The bladder blade was inserted. The vesicouterine peritoneum was identified, grasped with the pickup, and entered sharply with the Metzenbaum scissors. This incision was extended bilaterally, and the bladder flap was created digitally. The bladder blade was reinserted. The lower uterine segment was incised in a transverse fashion with the scalpel. Upon entering the amniotic sac there was a small amount clear amniotic fluid. The 's head was delivered. The remainder of the body delivered without difficulty. The cord was double clamped and cut. The infant was handed off to waiting RN and RT. The placenta was delivered manually. The uterus was cleared of all clots and debris then externalized. The uterine incision was repaired with #1 chromic in a running interlocking fashion and a second layer the same suture was used for an imbricating layer. A figure of 8 was placed in the middle of the uterine incision for hemostasis. Hemostasis was achieved. The tubes and ovaries were examined and were found to be normal. The left fallopian tube was grasped with the [place] by dr. Skelton and a segment of tube was tied off x2 with 0 plain suture. The intervening section was removed. Adequate hemostasis noted. The same procedure was performed on the opposite side by Dr. Skelton. Adequate hemostasis was noted. The uterus was placed back in the pelvis. The gutters were cleared of all clots and debris. The peritoneum was closed using 2-0 Vicryl in a running fashion. The fascia was reapproximated using 0 Vicryl in a running fashion. Subcutaneous layer was copiously irrigated with warm normal saline. 5 simple interrupted sutures of 3-0 Vicryl were placed to reapproximate the subcutaneous layer. The skin was closed with 4-0 undyed Vicryl in a subcuticular fashion. Steri-Strips were placed. An Aquacel dressing was placed. The uterus was expressed of a small amount of old blood. Sponge, lap, and instrument counts were correct. The patient tolerated the procedure well, and was taken to PACU in stable condition. Dr. Skelton was present and essential throughout the case. She assisted with cautery, retraction and closure. She also performed the bilateral tubal ligation. Complications: none Post-operative Condition: stable Disposition: PACU
[2020-05-14 10:02] VITALS: BP 126/51; PULSE 51; RESP 14; O2SAT 98
[2020-05-14 10:12] VITALS: BP 116/70; PULSE 50; RESP 15; O2SAT 100
--- NOTE | 2020-05-14 10:28 | SUR.PHASEI ---
Care assumed of patient by nurse Kaitlynn. Nurse aware that patient bradycardic and asymptomatic. Pt in NAD. VSS. AOx4.
[2020-05-14] MEDS: LANOLIN OINT 7 GM 1 APPLIC TOP (13:06)
[2020-05-14] MEDS: KETOROLAC 30 MG/ML VIAL IV ×2 (15:26→21:49)
[2020-05-14] MEDS: RHO(D) IMMUNE GLOBULIN 1,500 UNIT SYRINGE 1500 UNIT IM (15:27)
[2020-05-14] MEDS: ACETAMINOPHEN 325 MG TABLET 650 MG PO (21:50)
[2020-05-15] MEDS: KETOROLAC 30 MG/ML VIAL IV (04:15)
[2020-05-15] MEDS: ACETAMINOPHEN 325 MG TABLET 650 MG PO ×3 (05:56→19:28)
[2020-05-15] MEDS: OXYCODONE IR 5 MG TABLET 10 MG PO ×3 (05:56→17:41)
[2020-05-15 08:08] LABS: Hematocrit 28.2 % (36-46); Hemoglobin 9.7 g/dL (12.0-16.0)
[2020-05-15] MEDS: DOCUSATE 250 MG CAPSULE PO (09:04)
[2020-05-15] MEDS: PRENATAL VIT,CALC/IRON/FOLIC 1 TABLET 1 TAB PO (09:04)
--- NOTE | 2020-05-15 09:28 | PM.OBPN.1 ---
Subjective - OB Subjective Patient comments: no complaints, pain well controlled and tolerating diet baby status: doing well and nursing well feeding status: exclusively breast feeding Date Patient Seen: 05/15/20 Time Patient Seen: 09:15 Interval history: No concerns this morning. She has been up out of bed and voided. is going well but she was unable to breastfeed her three other children long due to supply issues. Exam Vital Signs (past 8 hours): Oxygen Delivery Method Room Air Oxygen Flow Rate 0 T 96.4 BP 142/52 P 60 Narrative Exam Narrative: General: Awake and alert, no acute distress. HEENT: NCAT, EOMI, moist oral mucosa CV: Regular rate and rhythm, no murmurs, rubs or gallops Lungs: CTAB, no wheezes, rales, or rhonchi Abdomen: Aquacel dressing intact without drainage. Soft, nontender; bowel tones active; uterus firm 1 cm below umbilicus. Extremities: Warm, no edema bilaterally Objective Labs Result Diagrams: 05/15/20 07:37 Labs: Laboratory Results - last 24 hr 05/15/20 05/15/20 07:37 07:37 Hgb 9.7 L Hct 28.2 L Maternal Bleed Negative Assessment & Plan Assessment and Plan (1) S/P : Status: Acute (2) S/P tubal ligation: Status: Acute Plan day: 1 plan OB: routine postop care Comments: Doing very well after repeat with bilateral tubal ligation. Recommended she start pumping given breast mild supply issues in the past. She is Rh negative and O+. Will need Rhogam . Anticipate discharge home tomorrow. Time Spent With Patient Time: Total time spent is greater than 50% in coordination of care (as documented) at patient's floor/unit and/or counseling patient: Time with patient: less than 15 minutes
[2020-05-15 12:41] VITALS: TEMP 36.4
[2020-05-15 12:42] VITALS: TEMP 36.4
[2020-05-15] MEDS: IBUPROFEN 600 MG TABLET PO ×2 (12:42→19:27)
[2020-05-16] MEDS: OXYCODONE IR 5 MG TABLET 10 MG PO ×2 (00:04→07:35)
[2020-05-16] MEDS: IBUPROFEN 600 MG TABLET PO ×2 (01:56→07:34)
[2020-05-16] MEDS: ACETAMINOPHEN 325 MG TABLET 650 MG PO (01:56)
[2020-05-16 07:21] VITALS: BP 116/70; PULSE 50; RESP 15; TEMP 36.4
[2020-05-16] MEDS: DOCUSATE 250 MG CAPSULE PO (07:34)
[2020-05-16] MEDS: PRENATAL VIT,CALC/IRON/FOLIC 1 TABLET 1 TAB PO (07:34)
--- NOTE | 2020-05-16 08:28 | P.DS_ITS ---
Discharge Providers Provider Date of admission: 05/14/20 06:17 Discharge Date: 05/16/20 Primary care physician: Berenice Louise DO Consults: 05/14/20 11:24 Consult to Payroll Professional Routine Comment: Discharge provider: Berenice Louise DO Summary Hospital Course Date Patient Seen: 05/16/20 Time Patient Seen: 09:06 Diagnoses: Thirty-nine weeks of Prior Hospital Course: Patient is a 34-year-old now 6 after repeat at 39 weeks with bilateral tubal ligation. course has been uncomplicated. She is ambulating voiding and passing flatus. Pain well controlled ibuprofen and oxycodone. Vaginal bleeding is light. is going well so far however she had difficulty with her milk supply for her other babies. She is already scheduled in is coming week. Advised patient to call for bleeding through more than a pad an hour, severe pain or fevers. Follow-up in 1 week for Aquacel dressing removal. Peripartum Data Infant Delivery Method: Section complications: none [place] 1: Gender: Female Disposition of : home Discharge Diagnosis (1) S/P : Status: Acute (2) S/P tubal ligation: Status: Acute (3) Acute blood loss anemia: Status: Acute Status at Discharge Cognitive/behavioral status at discharge: oriented Functional status at discharge: independent ambulation Overall status at discharge: patient is progressing back to baseline Time Spent with Patient Time attestation: Total time spent providing and/or coordinating discharge services: Time spent: Less than 30 minutes Objective Labs Result Diagrams: 05/15/20 07:37 Labs: Laboratory Results - last 24 hr 05/15/20 07:37 Maternal Bleed Negative Exam Vital Signs (past 8 hours): - 05/16/20 07:21 Temperature 97.6 F Pulse Rate 50 L Respiratory Rate 15 Blood Pressure 116/70 Oxygen Delivery Method Room Air Oxygen Flow Rate 0 Narrative Exam Narrative: General: Awake and alert, no acute distress. HEENT: NCAT, EOMI, moist oral mucosa CV: Regular rate and rhythm, no murmurs, rubs or gallops Lungs: CTAB, no wheezes, rales, or rhonchi Abdomen: Aquacel dressing intact without drainage. Soft, nontender; bowel tones active; uterus firm 1 cm below umbilicus Extremities: Warm, no edema bilaterally Discharge Plan Discharge Plan Patient Disposition: Home Discharge orders & Medications Prescriptions: New ibuprofen 600 mg Tablet 600 mg PO Q6HR PRN (Reason: Fever/Mild Pain (1-3)) Qty: 30 RF: 0 docusate sodium 250 mg Capsule 250 mg PO DAILY Qty: 30 RF: 0 oxycodone 5 mg Tablet 5 mg PO Q4HR PRN (Reason: Pain, Moderate (4-6)) Qty: 20 RF: 0 Continued prenat.vits,sadia,bov-xvna-smuja Tablet 1 tab PO DAILY RF: 0 Follow up/Referrals: Berenice Louise DO [Primary Care Provider] - 05/21/20 2:00 pm (Aquacel removal) Malu Alvares DO [Physician] - 05/19/20 11:00 am () Skin/Wound/Dressing Care Report to your healthcare provider any signs of infection, such as:: chills, fever, night sweats, increased pain, unusual drainage and unusual redness Visit Report/Discharge Packet Stand Alone Forms: Discharge: Care Visit Report Forms: Patient Portal/API, Stroke Signs & Symptoms Discharge Data Primary Care Provider: eBrenice Louise
== END 2020-05-16 09:45 | disposition home or self-care (01) | DRG 784 ==
PROVIDERS: Admitting Provider Family Medicine; PCP Family Medicine; Referring Provider Family Medicine; Visit Provider Family Medicine
PROC: 10D00Z1 Extraction of Products of Conception, Low, Open Approach (ICD-10-PCS; CPT 59514; principal; 2020-05-14 07:45)
DX: O34.219 Maternal care for unspecified type scar from previous cesarean delivery (principal); D62 Acute posthemorrhagic anemia; Z3A.39 39 weeks gestation of pregnancy; Z37.0 Single live birth; Z30.2 Encounter for sterilization; E66.01 Morbid (severe) obesity due to excess calories; O99.824 Streptococcus B carrier state complicating childbirth; Z20.822 Contact with and (suspected) exposure to COVID-19
CPT/HCPCS: 36415; 58611; 59050; 59510; 59514; 85014; 85018; 85025; 85461; 86850; 86870; 86900; 86901; 87635; C9803; J0690; J1885; J2274; J2405; J2590; J2790

== ENCOUNTER → 2020-05-19 12:35 | Outpatient (CLI) | payer OTHER, SELFPAY ==
[2020-05-19 14:08] LABS: Prolactin 239.9 ng/mL (3.0-18.6)
[2020-05-19 14:21] LABS: TSH w/ Reflex to FT4 1.31 uIU/mL (0.47-4.68)
[2020-05-19 14:24] LABS: Testosterone 14.8 ng/dL (5.71-77.0)
== END ==
PROVIDERS: PCP Family Medicine; Referring Provider Family Medicine; Visit Provider Family Medicine
DX: O92.70 Unspecified disorders of lactation (principal)
CPT/HCPCS: 36415; 84146; 84403; 84443